=== PATIENT | male | born 1980 | race Caucasian/White ===

== ENCOUNTER → 2020-05-07 | Emergency (ER) | payer BC, OTHER ==
[~2020-05-07] VITALS: Ht 175.3 cm; Wt 86.2 kg
[~2020-05-07] MED LIST: HYDROmorphone HCL 2 MG/ML VL IV ONE; ONDANSETRON HCL 4 MG/2 ML VIAL IV ONE; PANTOPRAZOLE 40 MG/10 ML VIAL INJ IV ONE; methylPREDNISolone SOD SUCC 125 MG/2 ML VL IV ONE
[2020-05-07 14:22] LABS: Basophils # (auto) 0 10 ^3/uL (0-0.2); Basophils % (auto) 0.5 % (0.0-2.0); Eosinophils # (auto) 0.2 10 ^3/uL (0-0.8); Eosinophils % (auto) 2.4 % (0.0-7.0); Hematocrit 44.9 % (41.0-53.0); Hemoglobin 15.6 g/dL (13.5-17.5); Lymphocytes # (auto) 2.3 10 ^3/uL (0.4-5.4); Lymphocytes % (auto) 24.9 % (10.0-50.0); Mean Corpuscular Hemoglobin 30.5 pg (28.0-32.0); Mean Corpuscular Hgb Conc. 34.8 g/dL (32.0-36.0); Mean Corpuscular Volume 87.6 fL (80.0-100.0); Monocytes # (auto) 0.5 10 ^3/uL (0-1.3); Monocytes % (auto) 5.1 % (0.0-12.0); Neutrophils # (auto) 6.2 10 ^3/uL (1.6-8.6); Neutrophils % (auto) 67.1 % (37.0-80.0); Nucleated Red Blood Cells % 0.1 %; Platelet Count (auto) 290 10^3/uL (140-450); Red Blood Cells 5.13 10^6/uL (4.5-5.90); Red Cell Distribution Width 12.6 % (11.8-14.3); White Blood Cell 9.2 10^3/uL (4.4-10.8)
[2020-05-07 14:44] LABS: Alanine Aminotransferase 40 U/L (16-61); Albumin 4.2 g/dL (3.4-5.0); Anion Gap 6 (5-15); Blood Urea Nitrogen 17 mg/dL (7-18); Calcium 8.8 mg/dL (8.5-10.1); Carbon Dioxide 28 mmol/L (21-32); Chloride 105 mmol/L (98-107); GFR African American 108 mL/min; GFR Non-African American 89 mL/min; Glucose 132 mg/dL (74-106); Potassium 3.5 mmol/L (3.5-5.1); Sodium 139 mmol/L (136-145)
[2020-05-07 14:51] LABS: Alkaline Phosphatase 68 U/L (45-117); Aspartate Aminotransferase 24 U/L (15-37); Total Protein 7.9 g/dL (6.4-8.2)
[2020-05-07 17:52] VITALS: BP 129/70
[2020-05-07 18:21] LABS: Urine Bacteria NONE SEEN /hpf (None Seen); Urine Blood Negative /uL (Negative); Urine Mucus FEW (None Seen); Urine Specific Gravity 1.031 (1.001-1.035); Urine WBC 1 /hpf (0 - 3)
[2020-05-07 18:30] LABS: Alcohol, Urine < 3.0 mg/dL (0-10); Amphetamine Screen, Urine NEGATIVE (NEGATIVE); Barbiturate Scree,Urine NEGATIVE (NEGATIVE); Benzodiazephine Screen, Urine NEGATIVE (NEGATIVE); Cannabinoid Screen, Urine NEGATIVE (NEGATIVE); Cocaine Screen, Urine NEGATIVE (NEGATIVE); Opiate Scree,Urine NEGATIVE (NEGATIVE); Phencyclidine Screen, Urine NEGATIVE (NEGATIVE)
== END | disposition home or self-care (01) ==
LOC: ER 13:58
DX: S32.009A Unspecified fracture of unspecified lumbar vertebra, initial encounter for closed fracture (principal); S43.101A Unspecified dislocation of right acromioclavicular joint, initial encounter; M54.17 Radiculopathy, lumbosacral region; W01.0XXA Fall on same level from slipping, tripping and stumbling without subsequent striking against object, initial encounter; Y93.89 Activity, other specified; Y92.89 Other specified places as the place of occurrence of the external cause; Y99.0 Civilian activity done for income or pay
CPT/HCPCS: 36415; 70450; 71250; 72125; 72128; 72131; 73200; 74176; 80053; 80307; 81001; 84484; 85025; 96374; 96375; 99285; C9113; J1170; J2405; J2930